=== PATIENT | female | born 1995 | race Caucasian/White ===

== ENCOUNTER 2018-01-17 19:44 | Emergency (ER) | payer SELFPAY ==
[2018-01-17 19:49] VITALS: BP 115/72; PULSE 90; RESP 16; TEMP 36.7; O2SAT 100
--- NOTE | 2018-01-17 19:55 | ED.GENADUL_ITS ---
Discharge Plan Disposition Patient Disposition: HOME Condition: Stable Discharge Details Chief Complaint: Nk/Back Pain Clinical Impression: Back contusion, Contusion of rib on right side Primary Care Provider: Olga Lidia,Local ED Provider: No White Home Meds and New Rx's Prescriptions: Continue multivitamin [Daily Multi-Vitamin] 1 EACH tablet 1 tab PO DAILY RF: 0 Ibuprofen [Ibuprofen Ib] 200 MG Tablet 400 mg PO PRN PRNRF: 0 Discharge Instructions Instructions: Back Pain (ED), Rib Contusion (ED) Additional Instructions: Alternate Tylenol and Motrin as needed and directed for pain. Apply ice to the affected area several times daily for 20 minutes at a time. Follow-up with your primary care doctor in 1 week for reevaluation. Return immediately to the emergency department with any worsening or new concerning symptoms. Stand Alone Forms: Work Release Discharge Data Discharge Physician: No White Medical Decision Making 22-year-old female who presents with right lower back pain after slipping and falling directly onto her back on ice this morning. No relief with 800mg Motrin or 325mg Tylenol this evening. LMP September 2017, elective 4 weeks ago. test negative. Vitals within normal limits. Patient appears nontoxic. Chest and abdomen nontender. No midline lumbar spine tenderness. Tenderness to palpation right posterior inferior rib cage and right lumbar paraspinal region. We will give a dose of 650 mg Tylenol and send for right rib x-ray/cxr. 2119 -- xrays negative. Patient feels better and feels good to go home. Patient instructed on ice, Motrin, Tylenol. Patient instructed to follow-up with the primary care doctor for reevaluation and to return here if worse. HPI General Mode of arrival: ambulatory . Date/Time Provider Initiated Documentation: 01/17/18 19:54 . Limitations to Documentation: no limitations . Information obtained by: patient . HPI Narrative: Pt is a 22yo F who presents to the ED w/ a right lower back pain after slipping on ice this morning. Patient has taken 800 mg of ibuprofen at 325 mg Tylenol without relief. She denies any other injury, chest pain, abdominal pain. Past medical history: Anxiety, depression Surgical history: D & C Social history: Smokes tobacco, alcohol or drugs Meds: Albuterol Allergies: NKDA Related Data Home Medications Medication Instructions Recorded Confirmed Ibuprofen [Ibuprofen Ib] 400 mg PO PRN PRN 02/03/17 01/17/18 multivitamin [Daily Multi-Vitamin] 1 tab PO DAILY 02/03/17 01/17/18 Allergies Allergy/AdvReac Type Severity Reaction Status Date / Time chocolate flavor Allergy Unverified 02/03/17 19:38 milk AdvReac Unverified 02/03/17 19:38 General Stated Complaint: Nk/Back Pain ANNETTE: 4 Review of Systems Review of Systems All systems reviewed & are unremarkable except as noted in HPI and below Constitutional Reports as per HPI, Denies chills and Denies fever(s) Eyes Denies blurry vision ENT Denies dizziness, Denies sore throat and Denies throat swelling Cardiovascular Denies chest pain and Denies dyspnea Respiratory Denies dyspnea Gastrointestinal Denies abdominal pain, Denies diarrhea and Denies vomiting Genitourinary Denies hematuria and Denies dysuria Musculoskeletal Denies back pain and Denies numbness Integumentary/Breasts Denies lesions and Denies rash Neurologic Denies dizziness and Denies numbness Allergic/Immunologic Denies throat swelling PFSH Social History Smoking/Tobacco Use Status: Never Exam Const General: cooperative and healthy appearing Orientation: alert and awake HENMT Head: normal to inspection Ears: hearing grossly normal bilaterally General nose exam: external nose normal Face and sinus: normal facial exam Eyes General: appearance normal, both eyes and all related structures Eyelids: eyelids normal EOM: EOM intact bilaterally Neck Neck: normal visual inspection Lymphatic: no lymphadenopathy noted Chest Chest: normal inspection of the chest Resp Effort & Inspection: normal respiratory effort and able to speak in complete sentences Auscultation: clear to auscultation bilaterally Cardio Rate: regular rate Rhythm: regular rhythm GI Inspection: normal to inspection Palpation: soft, not firm, no guarding, no hepatosplenomegaly, no masses and nontender Auscultation: normal bowel sounds Back/Spine/Pelvis Thoracic/Lumbar Spine: No thoracic spinal tenderness, No lumbar spinal tenderness and other (Tenderness to palpation R posterior inferior rib cage and right paraspinal region. No evidence of ecchymosis, edema, abrasion or laceration) Skin General skin exam: no rashes or lesions noted Neuro General: alert and awake Cognition: normal cognition Speech: speech normal Gait: normal gait Motor: muscle tone normal throughout Sensory Exam: no sensory deficits noted Extrem General: normal to inspection, full ROM and normal capillary refill Psych Appearance: grossly normal Mental Status: mental status grossly normal Speech and Movement: speech and movement normal Affect: normal affect Thought Process: normal Course Vital Signs Temperature 98.1 F 01/17/18 19:49 Pulse 90 01/17/18 19:49 Respiratory Rate 16 01/17/18 19:49 Blood Pressure 115/72 01/17/18 19:49 Pulse Oximetry 100 01/17/18 19:49 Temperature 98.1 F 01/17/18 19:49 Temperature Source Skin 01/17/18 19:49 Pulse 90 01/17/18 19:49 Respiratory Rate 16 01/17/18 19:49 Respiratory Effort Non-Labored 01/17/18 19:52 Blood Pressure 115/72 01/17/18 19:49 Blood Pressure Position Sitting 01/17/18 19:49 Pulse Oximetry 100 01/17/18 19:49 Oxygen Delivery Method Room Air 01/17/18 19:49 Oxygen Flow Rate 0 01/17/18 19:49 Pain Level 8 01/17/18 19:53
--- NOTE | 2018-01-17 20:14 | DI.RAD_ITS ---
SYMPTOM/DIAGNOSIS: S/P FALL, R/O ACUTE FRACTURE RT LOWER RIBS PA AND LATERAL CHEST AND RIGHT RIBS: The heart size is normal. The lungs are well inflated and clear. No pneumothorax or rib fracture is seen. The thoracic spine appears intact as visualized. IMPRESSION: Negative chest and right ribs.
[2018-01-17] MEDS: Acetaminophen 325 MG TAB (20:23)
--- NOTE | 2018-01-17 21:08 | DI.VRAD_ITS ---
EXAM: XR Right Ribs, 2 Views EXAM DATE/TIME: 01/17/2018 8:15 PM CLINICAL HISTORY: 22 years old, female; Injury or trauma; Fall; Initial encounter; Injury details: Fall at 1am 01/17; Patient HX: S/P fall; Additional info: R/O acute fracture r lower ribs TECHNIQUE: XR Right ribs 2 views. COMPARISON: No relevant prior studies available. FINDINGS: Bones/joints: Normal. Soft tissues: Normal. IMPRESSION: Normal right ribs. EXAM: XR Chest, 2 Views EXAM DATE/TIME: 01/17/2018 8:15 PM CLINICAL HISTORY: 22 years old, female; Injury or trauma; Fall; Initial encounter; Injury details: Fall at 1am 01/17; Patient HX: S/P fall; Additional info: R/O acute fracture r lower ribs TECHNIQUE: XR of the chest, 2 views. COMPARISON: No relevant prior studies available. FINDINGS: Lungs: Unremarkable. No consolidation. Pleural space: Unremarkable. No pleural effusion. No pneumothorax. Heart/Mediastinum: Unremarkable. No cardiomegaly. Bones/joints: No acute bony findings. IMPRESSION: Normal chest x-ray. Dictated and Authenticated by: Kevin Mcgrath MD. Ordering:JANELLE BURNS MD
== END 2018-01-17 21:51 | disposition home or self-care (01) ==
LOC: ER 21:56
PROVIDERS: Emergency Provider Physician Assistant
DX: S20.221A Contusion of right back wall of thorax, initial encounter (principal); S20.211A Contusion of right front wall of thorax, initial encounter; W00.0XXA Fall on same level due to ice and snow, initial encounter
CPT/HCPCS: 81025; 99283; 71046; 71100; 99282